=== PATIENT | male | born 1995 | race Two or more races ===

== ENCOUNTER 2025-03-11 18:00 | Emergency (ER) | payer OTHER, SELFPAY ==
[2025-03-11 18:00] VITALS: BMI 33.9
[2025-03-11 18:18] VITALS: BP 136/87; PULSE 83; RESP 18; TEMP 36.7; O2SAT 97
--- NOTE | 2025-03-11 19:16 | PD.EDUPEX ---
Upper Extremity Injury RME/HPI General Chief Complaint: Extremity Injury, Upper Stated Complaint: LEFT ELBOW LAC INJURY AT WORK AT [employer] Time Seen by Provider: 03/11/25 19:10 Arrival date/time: 03/11/25 18:00 RME / HPI RME / HPI narrative: 29-year-old male patient came in for evaluation regarding laceration to the left lateral elbow. Incident happened about 20 minutes prior to ER visit while working as laceration to the left lateral elbow, patient sustained 2 laceration, measuring 3 cm and 2 cm length. No active bleeding noted patient is able to bend and extend the elbow without any limitation. Patient's last tetanus vaccination was about 4 years ago. Related Data Home Medications ?Medication ?Instructions ?Recorded ?Confirmed omeprazole 10 mg capsule,delayed 10 mg PO QDAY 09/13/19 09/13/19 release Previous Rx's ?Medication ?Instructions ?Recorded docusate sodium 100 mg capsule 100 mg PO BID #40 caps 09/14/19 hydrocodone 5 mg-acetaminophen 325 1 tab PO Q6H PRN pain #14 tabs 09/14/19 mg tablet ([place]) ibuprofen 400 mg tablet 400 mg PO Q8HR PRN Pain 1-6 09/14/19 (Mild-Mod #20 tabs cyclobenzaprine 5 mg tablet 5 mg PO TID PRN muscle spasm #20 10/01/23 tabs ibuprofen 600 mg tablet 600 mg PO Q6H #30 tabs 10/01/23 Allergies Allergy/AdvReac Type Severity Reaction Status Date / Time Tetanus Vaccines and Toxoid Allergy Intermediate Redness of Verified 03/11/25 18:02 Skin Review of Systems Review of Systems Narrative Review of Systems: Review of system reviewed and within normal limits except mentioned in HPI ED Exam Narrative Physical exam: VITAL SIGNS: Reviewed. GENERAL APPEARANCE: Alert and interactive, follows commands, no acute distress, HEAD AND FACE: Non-traumatic. ENT: PERRL, pink conjunctivitis, eyelid no trauma, Mucous membrane moist. NECK: Supple, nontender, no nuchal rigidity. CHEST: No tenderness, no crepitus, no paradoxical movement, no retractions. LUNGS: Clear, well ventilated, symmetric, no rales, no wheezing, no ronchi, no stridor, good breath sounds bilaterally. HEART: Regular rate, regular rhythm, no murmur, no gallops. ABDOMEN: Soft, positive bowel sounds, nondistended, no guarding, nontender, no rebound, no masses, RECTAL: Deferred. GENITAL: Deferred. NEUROLOGICAL: Gross motor function intact sensory function intact, Appropriate for age. MUSCULOSKELETAL: low back nontender, full range of motion. EXTREMITIES: +3 cm laceration, left lateral elbow, 2 cm laceration left lateral elbow, full range of motion. SKIN: Color pink, dry, no rash, no abrasions, no contusions. LYMPHATICS: Deferred. Course Quality Measures none Orders Category Date Time Status Ibuprofen Tab [Motrin Tab] Med 03/11/25 19:15 Discontinued 800 mg PO X1 ONE Lidocaine 1% 20 ml [Xylocaine 1% 20 ML] Med 03/11/25 19:15 Discontinued 10 ml INFL X1 ONE cephALEXin [Keflex] Med 03/11/25 20:11 Discontinued 500 mg PO X1 ONE Vital Signs Vital signs: Vital Signs Temperature 98.1 F 03/11/25 18:18 Pulse Rate 83 03/11/25 18:18 Respiratory Rate 18 03/11/25 18:18 Blood Pressure 136/87 H 03/11/25 18:18 Pulse Oximetry (%) 97 03/11/25 18:18 Oxygen Delivery Method Room Air 03/11/25 18:18 Procedures -ED Laceration Laceration 1: Site: upper extremity Size (cm): 3 Description: flap Depth: simple, single layer Local Anesthetic: lidocaine 1% Amount of anesthesia used (mL): 10 Pre-repair: wound explored and irrigated extensively Skin layer closed with: nylon Suture size (cm): 5-0 Number of sutures: 5 Technique: simple, interrupted Extremity Injury MDM Narrative MDM Narrative:: 29-year-old male patient came in for evaluation regarding laceration to the left lateral elbow. Incident happened about 20 minutes prior to ER visit while working as laceration to the left lateral elbow, patient sustained 2 laceration, measuring 3 cm and 2 cm length. No active bleeding noted patient is able to bend and extend the elbow without any limitation. Patient's last tetanus vaccination was about 4 years ago. Repair and suturing was done by me see procedure note Patient appears nontoxic and hemodynamically stable .Decision to discharge the patient. The patient/family was given an opportunity to ask questions and understood their discharge instructions. Discharge instructions specifically included follow up provider and time frame, current and/or new medications and possible side effects, indications for sooner follow up or return to the emergency department, and the expected course of current diagnosis. Patient reports feeling better as well and giving evidence of significant clinical improvement, I believe patient is now a candidate for discharge. Patient data External records reviewed:: None Clinical information provided by:: patient Social determinants that could affect healthcare access:: none Patient has the following chronic illnesses:: None How is presenting disease/condition affected by chronic disease/condition?: no chronic disease Evaluation data The following diagnostics were reviewed and interpreted by me:: other (specify) Lab and/or radiology exams considered but not ordered:: None Interpretation Summary: None Medications / Prescriptions Medications or Prescriptions considered but not ordered:: None Medication administrations:: Medication Administration History Discontinued Medications Cephalexin HCl (Cephalexin 250 Mg Capsule) 500 mg PO X1 ONE Stop: 03/11/25 20:12 Ibuprofen (Ibuprofen Tab 400 Mg Tablet) 800 mg PO X1 ONE Stop: 03/11/25 19:16 Last Admin: 03/11/25 19:24 Dose: 800 mg Documented By: BD Lidocaine HCl (Lidocaine Hcl 1% 20 Ml Vial) 10 ml INFL X1 ONE Stop: 03/11/25 19:16 Last Admin: 03/11/25 19:25 Dose: 10 ml Documented By: BD Comments: given to ELIANA [employer] Consultations Consultation(s) initiated? (list below): No Diagnosis Upper Extremity Injury Differential Diagnosis: other (Laceration elbow) Most likely diagnosis given after review of the tests above:: Laceration elbow Admission Indicated Admission indicated?: not indicated Explain why admission is indicated or not indicated:: Stable Admission Request Was there a request for admission?: No Disposition Plan Disposition Plan: Discharge Discharge Attestation Discharge Attestation: The patient and all family members were given an opportunity to ask questions and understood the discharge instructions. Discharge instructions specifically effects, indications for sooner follow up or return to the emergency department, and the expected course of current diagnosis. Patient condition: Stable Discharge Plan Plan Patient Disposition: HOME (Self Care) Discharge Disposition comment: Stable Prescriptions/Referrals Prescriptions/Med Rec: No Action omeprazole 10 mg Capsule,Delayed Release(Dr/Ec) 10 mg PO QDAY ibuprofen 400 mg Tablet 400 mg PO Q8HR PRN (Reason: Pain 1-6 (Mild-Mod) Qty: 20 0RF docusate sodium 100 mg Capsule 100 mg PO BID Qty: 40 0RF hydrocodone-acetaminophen [[place]] 5-325 mg tablet 1 tab PO Q6H MDD 4 PRN (Reason: pain) Qty: 14 0RF cyclobenzaprine 5 mg tablet 5 mg PO TID PRN (Reason: muscle spasm) Qty: 20 0RF ibuprofen 600 mg tablet 600 mg PO Q6H Qty: 30 0RF Problem List Clinical Impression: Laceration of elbow, left Patient/Caregiver Discharge Instructions Discharge Activity: activity as tolerated Education Materials: ED Laceration: All Closures Additional Instructions: Thank you for the opportunity for serving you today. You are stable for discharged . You are advised to: Follow-up with your PCP in 1 to 2 days Return to ED for worsening of symptoms Increase oral fluids Take medication as prescribed Daily dressing with bacitracin as needed For removal of sutures in 10 days Print Language: Frisian Stand Alone Forms: [employer] Info., Patient Portal Info Letter
[2025-03-11] MEDS: IBUPROFEN TAB 400 MG TABLET 800 MG PO (19:24)
[2025-03-11] MEDS: LIDOCAINE HCL 1% 20 ML VIAL 10 ML INFL (19:25)
[2025-03-11] MEDS: cephALEXin 250 MG CAPSULE 500 MG PO (20:19)
== END 2025-03-11 20:33 | disposition home or self-care (01) ==
PROVIDERS: Emergency Provider Emergency Medicine
DX: S51.012A Laceration without foreign body of left elbow, initial encounter (principal); W45.8XXA Other foreign body or object entering through skin, initial encounter; Y93.89 Activity, other specified; Y99.0 Civilian activity done for income or pay
CPT/HCPCS: 12002; 99283; J3490; A9270

== ENCOUNTER 2025-08-25 09:54 | Emergency (ER) | payer OTHER, SELFPAY ==
[2025-08-25 10:09] VITALS: BP 129/84; PULSE 64; RESP 16; TEMP 36.7; O2SAT 98; BMI 31.8
--- NOTE | 2025-08-25 10:20 | XR_ITS ---
Examination: CT abdomen and pelvis without contrast. Coronal 3-D reconstructions. Sagittal 2-D reconstructions. Date and time of exam: August 25, 2025, 1035 hours, comparison September 12, 2019 INDICATIONS: Left-sided flank pain beginning 1 week ago CTDI: vol (mGy): 9.0 DLP: (mGycm): 516 Technique: Axial images of the abdomen have been obtained, 3 mm slice thickness Intravenous contrast material has not been administered. Low dose protocols were performed. One or more of the following dose reduction techniques were used; automated exposure control, adjustment of the mA and/or KV according to patient size, use of iterative reconstruction technique. Findings: No focal liver or splenic lesions No gallstones No pancreatic mass No renal or ureteral calculi, no hydronephrosis Aorta normal size No bowel obstruction Absent appendix No diverticulitis Normal prostate Normal urinary bladder Adequate bone density IMPRESSION: No renal or ureteral calculi, no hydronephrosis absent appendix
[2025-08-25 10:40] LABS: Basophils # (Auto) 0.1 Thou/mm3 (0.0-0.2); Basophils % (Auto) 1 % (0-2.5); Eosinophils # (Auto) 0.1 Thou/mm3 (0.0-0.5); Eosinophils % (Auto) 2 % (0-10); Hematocrit 43.9 % (41.0-53.0); Hemoglobin 15.3 g/dL (13.5-16.0); Immature Granulocytes Auto 0.03 Thou/mm3 (0.00-0.00); Lymphocytes # (Auto) 1.9 Thou/mm3 (1.0-4.8); Lymphocytes % (Auto) 28 % (10-50); Mean Corpuscular HGB Conc 34.9 g/dl (31.0-37.0); Mean Corpuscular Hemoglobin 29.8 pg (25.0-35.0); Mean Corpuscular Volume 86 fL (80-100); Monocytes # (Auto) 0.7 Thou/mm3 (0.0-0.8); Monocytes % (Auto) 10 % (0-12); Neutrophils # (Auto) 4.0 Thou/mm3 (1.8-7.7); Neutrophils % (Auto) 59 % (37-80); Nucleated Red Blood Cell # 0.00 Thou/mm3 (0.00-0.00); Nucleated Red Blood Cell % 0 /100 WBC (0); Platelet Count 312 Thou/mm3 (140-440); RDW Standard Deviation 38.1 fL (35.1-43.9); Red Blood Count 5.13 Miln/mm3 (4.50-5.90); White Blood Count 6.7 Thou/mm3 (3.8-10.6)
[2025-08-25 11:02] LABS: Alanine Aminotransferase 31 U/L (10-49); Albumin, Serum 4.9 gm/dL (3.5-5.0); Albumin/Globulin Ratio 2.1 (1.2-2.2); Alkaline Phosphatase 94 U/L (46-116); Anion Gap 8 (7-16); Aspartate Amino Transferase 28 U/L (0-34); BUN/Creatinine Ratio 13 Ratio (12-20); Bilirubin,Total 0.8 mg/dL (0.3-1.2); Blood Urea Nitrogen 13 mg/dL (9-23); Calcium 9.8 mg/dL (8.3-10.6); Calcium (Corrected) 9.8 mg/dL (8.5-10.1); Carbon Dioxide 29.3 mMol/L (20.0-31.0); Chloride 106 mMol/L (98-107); Creatinine (Component) 1.0 mg/dL (0.6-1.3); Estimated Creatinine Clearance 116.2 mL/min (>60); Globulin 2.3 gm/dL (2.3-3.5); Glucose 89 mg/dL (74-106); Lipase 33 U/L (12-53); Osmolality,Calculated 284 (275-295); Potassium 3.9 mMol/L (3.4-5.1); Sodium 143 mMol/L (136-145); Total Protein 7.2 gm/dL (5.7-8.2); eGFR > 60 See Note
[2025-08-25 11:19] LABS: Collection Type, Urine Clean Catch; Squamous Epithelial Cell,Urine 0 /hpf (0-5)
[2025-08-25 11:38] LABS: Bilirubin,Urine Negative (Negative); Blood,Urine Negative (Negative); Clarity,Urine Clear (Clear/Hazy); Color,Urine Lt-Yellow (Lt Yel-Yel); Culture Indicated,Urine Not Indicated; Glucose, Urine Negative (Negative); Ketones,Urine Negative (Negative); Leukocyte Esterase,Urine Negative (Negative); Nitrite,Urine Negative (Negative); PH,Urine 7.0 (5.0-7.0); Protein,Urine Negative (Neg - Trace); RBC,Urine 9 /hpf (0-3); Specific Gravity,Urine 1.026 (1.001-1.035); Urobilinogen,Urine Negative mg/dL (0.0-1.0); WBC,Urine 1 /hpf (0-5)
--- NOTE | 2025-08-25 11:50 | EDNOTE_ITS ---
ED Abdominal Pain RME/HPI General Chief Complaint: Abdominal Pain Stated complaint: LEFT SIDE ABD PAIN Time seen by provider: 08/25/25 10:19 Arrival date/time: 08/25/25 09:54 29-year-old male presents to the Emergency Department for complaint of left lower abdominal pain patient does report episode of constipation patient ports no fever nausea vomiting reports history of diverticulitis. Patient with surgical history significant for appendectomy Limitations: no limitations Related Data Home Medications ?Medication ?Instructions ?Recorded ?Confirmed omeprazole 10 mg capsule,delayed 10 mg PO QDAY 9 09/13/19 release Previous Rx's ?Medication ?Instructions ?Recorded docusate sodium 100 mg capsule 100 mg PO BID #40 caps 09/14/19 hydrocodone 5 mg-acetaminophen 325 1 tab PO Q6H PRN pa in #14 tabs 09/14/19 mg tablet ([place]) ibuprofen 400 mg tablet 400 mg PO Q8HR PRN Pain 1-6 09/14/19 (Mild-Mod #20 tabs cyclobenzaprine 5 mg tablet 5 mg PO TID PRN muscle spa sm #20 10/01/23 tabs ibuprofen 600 mg tablet 600 mg PO Q6H #30 tabs 10/01 famotidine 20 mg tablet (P[place]) 20 mg PO BID 30 days #60 tabs 08/25/25 omeprazole 20 mg capsule,delayed 20 mg PO QDAY 14 days #14 caps 08/25/25 release Allergies Allergy/AdvReac Type Severity Reaction Status Date / Time Tetanus Vaccines and Toxoid Allergy Intermediate Redness of Verified 08/25/25 09:55 Skin Review of Systems Review of Systems Systems Reviewed: All systems reviewed, normal except as documented Constitutional Constitutional: Reports system reviewed and no additional complaints, except as documented, Denies fever(s) and Denies headache(s) Eyes Eyes: Reports system reviewed and no additional complaints, except as documented and Denies blurry vision ENT Ears, Nose, Mouth, and Throat: Reports system reviewed and no additional complaints, except as documented, Denies headache(s), Denies nasal congestion and Denies nasal discharge Cardiovascular Cardiovascular: Reports system reviewed and no additional complaints, except as documented, Denies chest pain and Denies dyspnea Respiratory Respiratory: Reports system reviewed and no additional complaints, except as documented, Denies chest congestion, Denies cough and Denies dyspnea Gastrointestinal Gastrointestinal: Reports system reviewed and no additional complaints, except as documented and Reports abdominal pain Integumentary/Breasts Skin/Breast: Reports system reviewed and no additional complaints, except as documented and Denies rash Neurologic Neurologic: Reports system reviewed and no additional complaints, except as documented, Reports as per HPI and Denies headache(s) Past Medical History Past Medical History NEUROLOGIC: Negative Seizures CARDIAC: Negative Cardiac Disorders or Congestive Heart Failure RESPIRATORY: Negative Chronic Obstructive Pulmonary Disease (COPD) or Asthma GASTROINTESTINAL: Positive Gastrointestinal Disorders and Diverticulosis GENITOURINARY: Negative Renal Disease ENDOCRINE: Negative Diabetes Mellitus Type 1 or Diabetes Mellitus Type 2 HEMATOLOGIC: Negative Sickle Cell Disease OTHER HISTORY: Negative Blood Transfusions, Blood Transfusion Reaction or Anesthesia Reactions Social History SMOKING STATUS: Never smoker SECOND HAND EXPOSURE: No SUBSTANCE USE: marijuana ED Exam General Limitations: Present no limitations General appearance: Present alert and in no apparent distress Head Head exam: Present atraumatic Eye Eye exam: Present normal appearance, PERRL and EOMI; Absent conjunctival injection ENT ENT exam: Present normal exam, normal oropharynx and mucous membranes moist Neck Neck exam: Present normal inspection, full ROM and trachea midline Chest Chest inspection: Present normal inspection and symmetric chest wall rise Respiratory Respiratory exam: Present normal lung sounds bilaterally; Absent respiratory distress Cardiovascular Cardiovascular exam: Present regular rate, normal rhythm and normal heart sounds Abdominal Exam Abdominal exam: Present soft, tenderness and normal bowel sounds; Absent distention, guarding, rebound or rigidity Abdominal tenderness: Present LLQ; Absent RUQ, RLQ, LUQ, epigastrium or suprapubic Extremities Exam Extremities exam: Present normal inspection and full ROM Back Exam Back exam: Present normal inspection and full ROM Neurological Exam Neurological exam: Present alert, oriented X3 and CN II-XII intact Psychiatric Psychiatric exam: Present normal affect and normal mood Skin Skin exam: Present warm, dry, intact and normal color Course Quality Measures none Orders Category Date Time Status CT abdomen pelvis wo con Stat Exams 08/25/25 10:20 Completed CBC Stat Lab 08/25/25 10:26 Completed Comprehensive Metabolic Panel Stat Lab 08/25/25 10:26 Completed Lipase Stat Lab 08/25/25 10:26 Completed UA, C/S IF [Urinalysis, C/S if Indicated] Stat Lab 08/25/25 11:09 Completed Vital Signs Vital signs: Vital Signs Temperature 98.0 F 08/25/25 10:09 Pulse Rate 64 08/25/25 10:09 Respiratory Rate 16 08/25/25 10:09 Blood Pressure 129/84 08/25/25 10:09 Pulse Oximetry (%) 98 08/25/25 10:09 Oxygen Delivery Method Room Air 08/25/25 10:09 O2 saturation 98% room air within limits Abdominal Pain MDM MDM Narrative MDM Narrative:: 29-year-old male presents to the Emergency Department for complaint of left lower abdominal pain patient does report episode of constipation patient ports no fever nausea vomiting reports history of diverticulitis. Patient with surgical history significant for appendectomy Lab work imaging obtained no acute emergent findings noted Patient discharged home in no distress to follow-up with primary care doctor in the next 24 to 48 hours and for any worsening symptoms to return to the ER immediately Patient data External records reviewed:: [facility] previous records Clinical information provided by:: patient Social determinants that could affect healthcare access:: none Patient has the following chronic illnesses:: None How is presenting disease/condition affected by chronic disease/condition?: no chronic disease Evaluation data The following diagnostics were reviewed and interpreted by me:: lab results and radiology exam(s) Lab and/or radiology exams considered but not ordered:: lab and rad obtained Interpretation Summary: reviewed Medications / Prescriptions Medications or Prescriptions considered but not ordered:: rx given Medication administrations:: rx given Consultations Consultation(s) initiated? (list below): No Diagnosis Differential diagnosis abdominal pain: abdominal pain, acute appendicitis and pancreatitis Most likely diagnosis given after review of the tests above:: Abdominal pain Admission Indicated Admission indicated?: not indicated Admission Request Was there a request for admission?: No Disposition Plan Disposition Plan: Discharge Discharge Attestation Discharge Attestation: The patient and all family members were given an opportunity to ask questions and understood the discharge instructions. Discharge instructions specifically effects, indications for sooner follow up or return to the emergency department, and the expected course of current diagnosis. Patient condition: Stable Discharge Plan Plan Patient Disposition: HOME (Self Care) Discharge Disposition comment: Stable Prescriptions/Referrals Prescriptions/Med Rec: New famotidine [Pepcid] 20 mg tablet 20 mg PO BID 30 Days Qty: 60 0RF omeprazole 20 mg capsule,delayed release(DR/EC) 20 mg PO QDAY 14 Days Qty: 14 0RF No Action omeprazole 10 mg Capsule,Delayed Release(Dr/Ec) 10 mg PO QDAY ibuprofen 400 mg Tablet 400 mg PO Q8HR PRN (Reason: Pain 1-6 (Mild-Mod) Qty: 20 0RF docusate sodium 100 mg Capsule 100 mg PO BID Qty: 40 0RF hydrocodone-acetaminophen [[place]] 5-325 mg tablet 1 tab PO Q6H MDD 4 PRN (Reason: pain) Qty: 14 0RF cyclobenzaprine 5 mg tablet 5 mg PO TID PRN (Reason: muscle spasm) Qty: 20 0RF ibuprofen 600 mg tablet 600 mg PO Q6H Qty: 30 0RF Referrals: No Primary/Family,Physician [Primary Care Provider] - 08/26/25 Problem List Clinical Impression: Abdominal pain Patient/Caregiver Discharge Instructions Education Materials: Abdominal Pain Additional Instructions: Please follow up with your primary care doctor in the next 24-48hrs for any worsening symptoms return here immediately Print Language: Taiwanese Stand Alone Forms: [employer] Info., Work/School Release, Patient Portal Info Letter PA/PHP WEBSITE DEVELOPER Supervising Physician PA/PHP WEBSITE DEVELOPER Supervising Physician: Dr. Seay
== END 2025-08-25 12:06 | disposition home or self-care (01) ==
PROVIDERS: Emergency Provider Nurse Practitioner Primary Care
DX: K59.00 Constipation, unspecified (principal)
CPT/HCPCS: 36415; 74176; 80053; 81001; 83690; 85025; 99283